=== PATIENT | male | born 1970 | race Caucasian/White ===

== ENCOUNTER 2024-08-21 14:03 | Inpatient (IN) | payer OTHER ==
[2024-08-21 14:27] VITALS: BMI 36.6
[2024-08-21] MEDS ORDERED: ACETAMINOPHEN 325 MG TABLET (FP) PO PRN (14:51)
[2024-08-21] MEDS ORDERED: BISMUTH SUBSALICYLATE 262 MG/15 ML BTL PO PRN (14:51)
[2024-08-21] MEDS ORDERED: LOPERAMIDE HCL 2 MG CAPSULE PO PRN (14:51)
[2024-08-21] MEDS ORDERED: P-EPHED 60MG/TRIPROLIDI 2.5MG TABLET PO PRN (14:51)
[2024-08-21] MEDS ORDERED: IBUPROFEN 600 MG TABLET (FP) PO PRN (14:51)
[2024-08-21] MEDS ORDERED: NICOTINE POLACRILEX 2 MG GUM BUC PRN (14:51)
[2024-08-21] MEDS ORDERED: MAGNESIUM HYDROX 2400MG/30ML ORAL SUSPENSION 30 ML CUP PO PRN (14:51)
[2024-08-21] MEDS ORDERED: BENZOCAINE/MENTHOL (CHLORASEPTIC ) LOZENGE MM PRN (14:51)
[2024-08-21] MEDS ORDERED: NICOTINE POLACRILEX 2 MG LOZENGE BC PRN (14:51)
[2024-08-21] MEDS ORDERED: BENZONATATE 200 MG CAPSULE PO PRN (14:51)
[2024-08-21] MEDS ORDERED: MAG HYDROX/AL HYDROX/SIMETH 30 ML UNIT-DOSE CUP PO PRN (14:51)
[2024-08-21] MEDS ORDERED: POLYETHYLENE GLYCOL (HEALTHYLAX) 3350 17 GM PACKET PO PRN (14:51)
[2024-08-21] MEDS ORDERED: NALOXONE (NARCAN) HCL 4 MG/0.1 ML SPRAY NS PRN (14:51)
[2024-08-21] MEDS ORDERED: ONDANSETRON *ODT* 4 MG TABLET SL PRN (14:51)
[2024-08-21] MEDS ORDERED: IBUPROFEN 400 MG TABLET (FP) PO PRN (14:51)
[2024-08-21] MEDS ORDERED: guaiFENesin 600 MG TABLET.ER (FP) PO PRN (14:51)
[2024-08-21] MEDS ORDERED: DICYCLOMINE HCL 10 MG CAPSULE PO PRN (14:51)
[2024-08-21] MEDS: MELATONIN 5 MG TABLETS PO SCH (22:07)
[2024-08-21] MEDS: THIAMINE 100 MG TABLET PO SCH (22:07)
[2024-08-22] MEDS: methaDONE HCL 10 MG TABLET (FOR DETOX USE ONLY) PO ONE (10:20)
[2024-08-22] MEDS: hydrOXYzine PAMOATE 25 MG CAPSULE (FP) PO PRN (10:20)
[2024-08-22] MEDS: METHOCARBAMOL 500 MG TABLET PO PRN (10:20)
[2024-08-22] MEDS: PRENATAL VITAMINS W/ FOLIC ACID TABLET (FP) PO SCH (10:20)
[2024-08-22 12:11] LABS: HEMATOCRIT 30.9 % (35.4-49); HEMOGLOBIN 10.3 GM/dL (11.7-16.9); MCH 29.4 pg (25.7-33.7); MCHC 33.3 g/dl (32.0-35.9); MEAN CELL VOLUME 88.2 fl (80-96); MEAN PLT VOLUME 7.3 fl (7.5-11.1); PLATELET COUNT 273 10^3/uL (134-434); RBC 3.51 M/mm3 (4.00-5.60); RDW 15.4 % (11.9-15.9); WHITE BLOOD COUNT 4.1 K/mm3 (4.0-10.0)
[2024-08-22 14:39] LABS: CHLORIDE 104 mmol/L (98-107); SODIUM 139 mmol/L (136-145)
[2024-08-22 14:43] LABS: ANION GAP 3 mmol/L (4-13); BLOOD UREA NITROGEN 12.4 mg/dL (7-18); CALCIUM 8.3 mg/dL (8.5-10.1); CO2 32 mmol/L (21-32); GLUCOSE,RANDOM 103 mg/dL (74-106)
[2024-08-22 14:46] LABS: CREATININE 0.7 mg/dL (0.55-1.3); SGOT/AST 63 U/L (15-37); SGPT/ALT 67 U/L (13-61)
[2024-08-22 14:47] LABS: BILIRUBIN,TOTAL 0.4 mg/dL (0.2-1)
[2024-08-22 14:48] LABS: TOT PROT 5.9 g/dl (6.4-8.2)
[2024-08-22 14:49] LABS: ALK PHOS 65 U/L (45-117)
[2024-08-23] MEDS: cloNIDine HCL 0.1 MG TABLET PO PRN (09:39)
[2024-08-24] MEDS: methaDONE HCL 10 MG TABLET (FOR DETOX USE ONLY) PO ONE (09:37)
[2024-08-24] MEDS: NALOXONE (NYS OPIOID OVERDOSE PROGRAM) 4 MG/0.1 ML SPRAY NS ONE (13:35)
[2024-08-25] MEDS: cloNIDine HCL 0.1 MG TABLET PO ONE (13:48)
[2024-08-26] MEDS: methaDONE HCL 10 MG TABLET (FOR DETOX USE ONLY) PO ONE (10:00)
[2024-08-26] MEDS: CALCIUM CARBONATE 650 MG TABLET PO SCH (14:55)
[2024-08-26] MEDS: cloNIDine HCL 0.1 MG TABLET PO ONE (15:33)
[2024-08-27 09:43] VITALS: BP 160/100; PULSE 70; RESP 18; TEMP 97.5
[2024-08-27] MEDS: cloNIDine HCL 0.1 MG TABLET PO PRN (09:58)
[2024-08-27] MEDS: NALOXONE (NYS OPIOID OVERDOSE PROGRAM) 4 MG/0.1 ML SPRAY NS PRN (10:50)
[2024-08-27 12:17] LABS: ALBUMIN 3.4 g/dl (3.4-5.0)
[2024-08-27 12:19] LABS: BILIRUBIN,DIRECT 0.1 mg/dL (0.0-0.2)
[2024-08-27 12:21] LABS: BILIRUBIN,TOTAL 0.5 mg/dL (0.2-1)
== END 2024-08-27 10:55 | disposition other institution (70) | DRG 773 ==
LOC: YASAS 14:03 → Y3N 17:01
PROVIDERS: ADMIT Allergy & Immunology; ATTEND Surgery
PROC: HZ2ZZZZ Detoxification Services for Substance Abuse Treatment (ICD-10-PCS; principal; 2024-08-21)
DX: F11.23 Opioid dependence with withdrawal (principal); F12.20 Cannabis dependence, uncomplicated; F17.210 Nicotine dependence, cigarettes, uncomplicated; E83.51 Hypocalcemia; G47.00 Insomnia, unspecified; I10 Essential (primary) hypertension; R94.5 Abnormal results of liver function studies
CPT/HCPCS: 36415; 80053; 80076; 80305; 80307; 85027; 86780; 87811; 93005; 93010

== ENCOUNTER 2024-08-27 10:44 | Inpatient (IN) | payer OTHER ==
[2024-08-27] MEDS ORDERED: NICOTINE POLACRILEX 4 MG LOZENGE BC PRN (14:36)
[2024-08-27] MEDS ORDERED: NICOTINE POLACRILEX 4 MG GUM BUC PRN (14:36)
[2024-08-27] MEDS ORDERED: BENZOCAINE/MENTHOL (CHLORASEPTIC ) LOZENGE MM PRN (14:36)
[2024-08-27] MEDS ORDERED: IBUPROFEN 400 MG TABLET (FP) PO PRN (14:36)
[2024-08-27] MEDS ORDERED: METHOCARBAMOL 500 MG TABLET PO PRN (14:36)
[2024-08-27] MEDS ORDERED: IBUPROFEN 600 MG TABLET (FP) PO PRN (14:36)
[2024-08-27] MEDS ORDERED: NICOTINE 14 MG/24 HOURS TOPICAL PATCH TD PRN (14:36)
[2024-08-27] MEDS ORDERED: NALOXONE HCL 0.4 MG/ML VIAL IVPUSH PRN (14:36)
[2024-08-27] MEDS ORDERED: MAG HYDROX/AL HYDROX/SIMETH 30 ML UNIT-DOSE CUP PO PRN (14:36)
[2024-08-27] MEDS ORDERED: ACETAMINOPHEN 325 MG TABLET (FP) PO PRN (14:36)
[2024-08-27] MEDS ORDERED: POLYETHYLENE GLYCOL (HEALTHYLAX) 3350 17 GM PACKET PO PRN (14:36)
[2024-08-27] MEDS ORDERED: guaiFENesin 600 MG TABLET.ER (FP) PO PRN (14:36)
[2024-08-27] MEDS ORDERED: BENZONATATE 200 MG CAPSULE PO PRN (14:36)
[2024-08-27] MEDS ORDERED: MAGNESIUM HYDROX 2400MG/30ML ORAL SUSPENSION 30 ML CUP PO PRN (14:36)
[2024-08-27] MEDS ORDERED: NALOXONE (NARCAN) HCL 4 MG/0.1 ML SPRAY NS PRN (14:36)
[2024-08-27] MEDS ORDERED: LOPERAMIDE HCL 2 MG CAPSULE PO PRN (14:36)
[2024-08-27] MEDS ORDERED: cloNIDine HCL 0.1 MG TABLET PO PRN ×2 (14:38→14:41)
[2024-08-27] MEDS: THIAMINE 100 MG TABLET PO SCH (21:27)
[2024-08-27] MEDS: MELATONIN 5 MG TABLETS PO SCH (21:27)
[2024-08-28] MEDS: PRENATAL VITAMINS W/ FOLIC ACID TABLET (FP) PO SCH (10:32)
[2024-08-28 15:34] LABS: HIV INTERPRETATION NEGATIVE (NEGATIVE)
[2024-09-07] MEDS ORDERED: PRENATAL VITAMINS W/ FOLIC ACID TABLET (FP) PO PRN (13:52)
[2024-09-13] MEDS: hydrOXYzine PAMOATE 25 MG CAPSULE (FP) PO PRN (21:02)
[2024-09-17] MEDS: MELATONIN 5 MG TABLETS PO SCH (21:32)
[2024-09-18] MEDS: HYDROCORTISONE 1% TOPICAL CREAM 30 GM TUBE TP PRN (10:24)
[2024-09-27 06:45] VITALS: BP 153/90; PULSE 78; RESP 20; TEMP 97.6
[2024-09-27] MEDS: NALOXONE (NYS OPIOID OVERDOSE PROGRAM) 4 MG/0.1 ML SPRAY NS PRN (08:52)
[2024-09-27] MEDS: NALOXONE (NARCAN) HCL 4 MG/0.1 ML SPRAY NS ONE (09:02)
== END 2024-09-27 08:52 | disposition home or self-care (01) | DRG 772 ==
LOC: YASAS 10:44 → Y3E 10:47
PROVIDERS: ADMIT Psychiatry & Neurology Pain Medicine; ATTEND Psychiatry & Neurology Pain Medicine
PROC: HZ42ZZZ Group Counseling for Substance Abuse Treatment, Cognitive-Behavioral (ICD-10-PCS; principal; 2024-08-27)
DX: F11.20 Opioid dependence, uncomplicated (principal); F12.20 Cannabis dependence, uncomplicated; F17.210 Nicotine dependence, cigarettes, uncomplicated; F41.9 Anxiety disorder, unspecified; E78.5 Hyperlipidemia, unspecified; G47.00 Insomnia, unspecified; I10 Essential (primary) hypertension; R21 Rash and other nonspecific skin eruption
CPT/HCPCS: 36415; 87389